=== PATIENT | female | born 1965 | race American Indian/Alaskan Native ===

== ENCOUNTER 2017-10-14 01:54 | Emergency (ER) | payer BC, OTHER ==
--- NOTE | 2017-10-14 05:54 | XRay Report ---
FINAL REPORT PROCEDURE: XR CHEST ROUTINE 2V TECHNIQUE: PA and lateral chest radiographs were obtained. CPT 60375 HISTORY: SOB COMPARISON: No prior studies are available for comparison. FINDINGS: Heart: Normal. Mediastinum/Vessels: Normal. Lungs/Pleural space: Normal. Bony thorax: No acute osseous abnormality. Other: IMPRESSION: Normal examination.
[2017-10-14] MEDS ORDERED: TYLENOL/CODEINE PO ONE (06:29)
[2017-10-14] MEDS ORDERED: DUONEB *Not for PRN Use IH ONE (06:29)
[2017-10-14] MEDS ORDERED: TORADOL IM ONE (06:30)
--- NOTE | 2017-10-14 07:04 | Emergency Department Report ---
Chief Complaint: Upper Respiratory Infection Stated Complaint: SORE THROAT - HPI History of Present Illness: throat pain and cough x1 day - ROS Review of Systems: ENT: throat pain Resp: cough, wheezing - Exam Vital Signs: Vital Signs 10/14/17 01:59 Temperature 98 F Pulse Rate 104 H Respiratory 18 Rate Blood Pressure 144/91 O2 Sat by Pulse 100 Oximetry Physical Exam: General: afebrile, no acute distress Lungs: wheezing left lower lung MSE screening note: Focused history and physical exam performed. Due to findings the following was ordered: CXR Flu Strep ED Medical Decision Making - Radiology Data Radiology results: pending ED Disposition for MSE Condition: Stable Referrals: PRIMARY CARE, [Primary Care Provider] - 3-5 Days
--- NOTE | 2017-10-14 07:52 | Emergency Department Report ---
HPI - General Chief Complaint: Upper Respiratory Infection Time Seen by Provider: 10/14/17 07:23 - HPI HPI: This is a 52-year-old female who presents to ED complaining of throat pain 2 days. Patient states symptoms started with a sore throat yesterday and she gargled with salt warm water before going to bed. Patient states during the night she had some ticks shortness of breath with some dry coughing. Patient states coughing started last night, patient admits cough is dry and nonproductive. She denies any fevers, runny nose, abdominal pain, chest pain, dizziness, headaches or any problems ED Past Medical Hx - Past Medical History Hx Diabetes: Yes Additional medical history: hyperlipidemia - Social History Smoking Status: Never Smoker Substance Use Type: None - Medications Home Medications: Home Medications Medication Instructions Recorded Confirmed Last Taken Type ALBUTEROL Inhaler [ProAir HFA 2 puff IH QID PRN #1 pump 10/14/17 Unknown Rx Inhaler] guaiFENesin [Robitussin] 200 mg PO Q6HR #30 tablet 10/14/17 Unknown Rx ED Review of Systems ROS: Stated complaint: SORE THROAT Other details as noted in HPI Constitutional: denies: chills, fever Eyes: denies: eye pain, eye discharge, vision change ENT: throat pain. denies: ear pain Respiratory: cough, shortness of breath. denies: wheezing Cardiovascular: denies: chest pain, palpitations Endocrine: no symptoms reported Gastrointestinal: denies: abdominal pain, nausea, diarrhea Genitourinary: denies: urgency, dysuria, frequency, hematuria, discharge Musculoskeletal: denies: back pain, joint swelling, arthralgia Skin: denies: rash, lesions Neurological: denies: headache, weakness, paresthesias Psychiatric: denies: anxiety, depression Hematological/Lymphatic: denies: easy bleeding, easy bruising Physical Exam - Physical Exam Vital Signs: Vital Signs 10/14/17 01:59 Temperature 98 F Pulse Rate 104 H Respiratory 18 Rate Blood Pressure 144/91 O2 Sat by Pulse 100 Oximetry Physical Exam: GENERAL: Alert and oriented x3, no apparent distress, Normal Gait, atraumatic. HEAD: Head is normocephalic and a-traumatic. EYES: Extra ocular muscles are intact. Pupils are equal, round, and reactive to light and accommodation. EARS: symetrical, atraumatic, non tender, ear canal clear and moderate cerumen, tympanic membrance non inflamed. gross auditory nml bilaterally. NOSE: Nose symetrical, Nontender,Nares appeared normal. MOUTH:Mouth is well hydrated and without lesions. Tonsils nonerythematous or swollen, Uvula midline, Tongue not elevated. Mucous membranes are moist. Posterior pharynx clear, no exudate or lesions. Patent airways. NECK: Supple. Non edematous, No lymphadenopathy or thyromegaly. LUNGS: Symetrical with respiration, No wheezing, no rales or crackles, CTAB. HEART: S1, S2 present, regular rate and rhythm without murmur, no rubs, no gallops. Non tender to palpation BACK: Full range of motion, no spinal tenderness, nontender to palpation. SKIN: Warm and dry, No lesions, No ulceration or induration present. ED Course Vital Signs 10/14/17 01:59 Temperature 98 F Pulse Rate 104 H Respiratory 18 Rate Blood Pressure 144/91 O2 Sat by Pulse 100 Oximetry ED Medical Decision Making - Radiology Data Radiology results: report reviewed, image reviewed FINAL REPORT PROCEDURE: XR CHEST ROUTINE 2V TECHNIQUE: PA and lateral chest radiographs were obtained. CPT 91374 HISTORY: SOB COMPARISON: No prior studies are available for comparison. FINDINGS: Heart: Normal. Mediastinum/Vessels: Normal. Lungs/Pleural space: Normal. Bony thorax: No acute osseous abnormality. Other: IMPRESSION: Normal examination. Transcribed By: CO Dictated By: NATHANIEL MENDENHALL MD Electronically Authenticated By: NATHANIEL MENDENHALL MD Signed Date/Time: 10/14/17 0151 - Medical Decision Making 52 yo female presents with pharyngitis/bronchitis ED course: Patient received an albuterol respiratory treatment, cough suppressant, rapid strep test, Rapid strep test negative, discussed this with the patient. Patient reports feeling better after breathing treatment. Patient is satting at 100% room air Vital signs are normal patient is in no acute or respiratory distress. Discussed the patient will go home on cough suppressant and albuterol inhaler to use as needed for cough/sob. Discussed the patient to follow up with actuarial director in 3-5 days. Discussed the patient if symptoms worsen or new symptoms arise to return to ED immediately Critical care attestation.: If time is entered above; I have spent that time in minutes in the direct care of this critically ill patient, excluding procedure time. ED Disposition Clinical Impression: Bronchitis Pharyngitis Qualifiers: Pharyngitis/tonsillitis etiology: unspecified etiology Qualified Code(s): J02.9 - Acute pharyngitis, unspecified Disposition: - TO HOME OR SELFCARE Is pt being admited?: No Does the pt Need Aspirin: No Condition: Stable Instructions: Pharyngitis (ED), Chronic Bronchitis (ED) Additional Instructions: Follow-up with primary care as soon as possible A few her symptoms worsen or new symptoms arise is transferred to the ED immediately. Prescriptions: ALBUTEROL Inhaler [ProAir HFA Inhaler] 2 puff IH QID PRN #1 pump PRN Reason: Shortness Of Breath guaiFENesin [Robitussin] 200 mg PO Q6HR #30 tablet Referrals: PRIMARY CARE, [Primary Care Provider] - 3-5 Days [facility] [Outside] - 3-5 Days [facility] [Outside] - 3-5 Days [facility] [Outside] - 3-5 Days [facility] [Outside] - 3-5 Days Forms: Work/School Release Form(ED) Time of Disposition: 07:58
[2017-10-14 08:52] VITALS: BP 140/92
== END 2017-10-14 08:51 | disposition home or self-care (01) ==
LOC: ED 01:54
DX: J02.9 Acute pharyngitis, unspecified (principal); J40 Bronchitis, not specified as acute or chronic; E11.9 Type 2 diabetes mellitus without complications; E78.5 Hyperlipidemia, unspecified
CPT/HCPCS: 71020; 87116; 87430; 94640; 96372; 99283; J1885

== ENCOUNTER 2019-09-10 07:01 | Emergency (ER) | payer OTHER ==
[2019-09-10 07:14] VITALS: BP 158/120
[2019-09-10] MEDS ORDERED: NACL 0.9% 1000 ML 1,000 ML IV ONE (07:46)
--- NOTE | 2019-09-10 07:52 | Emergency Department Report ---
History of Present Illness - General Chief Complaint: Overdose Stated Complaint: MEDICATION OD Time Seen by Provider: 09/10/19 07:24 Source: patient Mode of arrival: Ambulatory Limitations: No Limitations - History of Present Illness Initial Comments: This is a 54-year-old -[place] female who presents to the emergency room after accidentally taking full dose of glipizide and metformin. Patient states she was distracted this morning while getting ready for work and accidentally to metformin 2000 mg and glipizide 15 mg. Patient states she checked her glucose at home which was 109. She called the nurse hotline for [facility] forwarded her call to poison control. Patient states was uncontrolled instructed her to follow up in the emergency room. Patient denies trauma, tachycardia, diaphoresis, anxious, dizziness, visual changes, and confusion. MD Complaint: accidental overdose Intent: other (accidental) How Overdose Was Discovered: other (called the nurse hotline) Context: Accidental Overdose: medication error Treatments Prior to Arrival: none - Related Data Previous Rx's Medication Instructions Recorded Last Taken Type RX: ALBUTEROL Inhaler (OR & NICU) 2 puff IH QID PRN #1 pump 10/14/17 Unknown Rx [ProAir HFA Inhaler] guaiFENesin [Robitussin] 200 mg PO Q6HR #30 tablet 10/14/17 Unknown Rx Allergies Allergy/AdvReac Type Severity Reaction Status Date / Time No Known Allergies Allergy Unverified 10/14/17 02:02 ED Review of Systems ROS: Stated complaint: MEDICATION OD Other details as noted in HPI Constitutional: denies: chills, fever Respiratory: denies: cough, shortness of breath, wheezing Cardiovascular: denies: chest pain, palpitations Endocrine: no symptoms reported Gastrointestinal: denies: abdominal pain, nausea, diarrhea Skin: denies: rash, lesions Neurological: denies: headache, weakness, paresthesias ED Past Medical Hx - Past Medical History Previous Medical History?: Yes Hx Diabetes: Yes Additional medical history: hyperlipidemia - Social History Smoking Status: Never Smoker Substance Use Type: None - Medications Home Medications: Home Medications Medication Instructions Recorded Confirmed Last Taken Type RX: ALBUTEROL Inhaler (OR & NICU) 2 puff IH QID PRN #1 pump 10/14/17 Unknown Rx [ProAir HFA Inhaler] guaiFENesin [Robitussin] 200 mg PO Q6HR #30 tablet 10/14/17 Unknown Rx ED Physical Exam - General Limitations: No Limitations General appearance: alert, in no apparent distress - Respiratory Respiratory exam: Present: normal lung sounds bilaterally. Absent: respiratory distress - Cardiovascular Cardiovascular Exam: Present: regular rate, normal rhythm. Absent: systolic murmur, diastolic murmur, rubs, gallop - GI/Abdominal GI/Abdominal exam: Present: soft, normal bowel sounds. Absent: tenderness, guarding, rebound, rigid - Neurological Exam Neurological exam: Present: alert, oriented X3, normal gait - Psychiatric Psychiatric exam: Present: normal affect, normal mood - Skin Skin exam: Present: warm, dry, intact, normal color. Absent: rash ED Course Vital Signs 09/10/19 09/10/19 07:10 09:01 Temperature 98.6 F Pulse Rate 86 Respiratory 16 12 Rate Blood Pressure 158/120 [Left] O2 Sat by Pulse 99 100 Oximetry ED Medical Decision Making - Lab Data Result diagrams: 09/10/19 07:49 09/10/19 07:49 Lab Results 09/10/19 09/10/19 09/10/19 Range/Units 07:17 07:49 07:49 WBC 5.4 (4.5-11.0) K/mm3 RBC 3.86 (3.65-5.03) M/mm3 Hgb 10.8 (10.1-14.3) gm/dl Hct 32.9 (30.3-42.9) % MCV 85 (79-97) fl MCH 28 (28-32) pg MCHC 33 (30-34) % RDW 16.3 H (13.2-15.2) % Plt Count 290 (140-440) K/mm3 Lymph % (Auto) 25.0 (13.4-35.0) % Cotton % (Auto) 8.5 H (0.0-7.3) % Eos % (Auto) 4.4 H (0.0-4.3) % Baso % (Auto) 1.2 (0.0-1.8) % Lymph # 1.3 (1.2-5.4) K/mm3 Cotton # 0.5 (0.0-0.8) K/mm3 Eos # 0.2 (0.0-0.4) K/mm3 Baso # 0.1 (0.0-0.1) K/mm3 Seg Neutrophils % 60.9 (40.0-70.0) % Seg Neutrophils # 3.3 (1.8-7.7) K/mm3 Sodium 140 (137-145) mmol/L Potassium 4.3 (3.6-5.0) mmol/L Chloride 100.4 (98-107) mmol/L Carbon Dioxide 23 (22-30) mmol/L Anion Gap 21 mmol/L BUN 8 (7-17) mg/dL Creatinine 0.7 (0.7-1.2) mg/dL Estimated GFR > 60 ml/min BUN/Creatinine Ratio 11 % Glucose 145 H (65-100) mg/dL POC Glucose 115 H (70-105) Calcium 9.0 (8.4-10.2) mg/dL 09/10/19 Range/Units 08:47 WBC (4.5-11.0) K/mm3 RBC (3.65-5.03) M/mm3 Hgb (10.1-14.3) gm/dl Hct (30.3-42.9) % MCV (79-97) fl MCH (28-32) pg MCHC (30-34) % RDW (13.2-15.2) % Plt Count (140-440) K/mm3 Lymph % (Auto) (13.4-35.0) % Cotton % (Auto) (0.0-7.3) % Eos % (Auto) (0.0-4.3) % Baso % (Auto) (0.0-1.8) % Lymph # (1.2-5.4) K/mm3 Cotton # (0.0-0.8) K/mm3 Eos # (0.0-0.4) K/mm3 Baso # (0.0-0.1) K/mm3 Seg Neutrophils % (40.0-70.0) % Seg Neutrophils # (1.8-7.7) K/mm3 Sodium (137-145) mmol/L Potassium (3.6-5.0) mmol/L Chloride (98-107) mmol/L Carbon Dioxide (22-30) mmol/L Anion Gap mmol/L BUN (7-17) mg/dL Creatinine (0.7-1.2) mg/dL Estimated GFR ml/min BUN/Creatinine Ratio % Glucose (65-100) mg/dL POC Glucose 114 H (70-105) Calcium (8.4-10.2) mg/dL - Medical Decision Making Patient was examined by me. Patient is nontoxic appearing and stable. Vitals are normal. Obtained labs. Consulted with attending Dr. Mitchell regarding possible administration of activated charcoal per poison control. Patient moved to the main emergency room pending labs and 24-hour observation. Critical care attestation.: If time is entered above; I have spent that time in minutes in the direct care of this critically ill patient, excluding procedure time. ED Disposition Disposition: DC/TX-70 ANOTHER TYPE [facility] Condition: Stable Referrals: [facility]RIS [facility]ANN [Other] - 3-5 Days
[2019-09-10 08:03] LABS: Basophils # (Auto) 0.1 K/mm3 (0.0-0.1); Basophils % (Auto) 1.2 % (0.0-1.8); Eosinophils # (Auto) 0.2 K/mm3 (0.0-0.4); Eosinophils % (Auto) 4.4 % (0.0-4.3); Hematocrit 32.9 % (30.3-42.9); Hemoglobin 10.8 gm/dl (10.1-14.3); Lymphocytes # (Auto) 1.3 K/mm3 (1.2-5.4); Mean Corpuscular HGB Conc 33 % (30-34); Mean Corpuscular Volume 85 fl (79-97); Monocytes # (Auto) 0.5 K/mm3 (0.0-0.8); Monocytes % (Auto) 8.5 % (0.0-7.3); Platelet Count 290 K/mm3 (140-440); Red Blood Count 3.86 M/mm3 (3.65-5.03); Red Cell Distribution Width 16.3 % (13.2-15.2)
[2019-09-10] MEDS ORDERED: ACTIDOSE-AQUA PO ONE (08:23)
[2019-09-10 08:31] LABS: BUN/Creatinine Ratio 11; Blood Urea Nitrogen 8 mg/dL (7-17); Hemolysis Index 2
--- NOTE | 2019-09-10 08:35 | Emergency Department Report ---
Neisha Doc - Documentation Documentation: The patient is a 54-year-old female visiting with a chief complaint of acciden aamir overdose of metformin and glyburide. The patient states she normally takes metformin 1000 mg twice a day and glipizide 5 mg every morning and 10 mg every afternoon. The patient states she forgot to separate her medication and took a total of metformin 2000 mg and glipizide 15 mg today at 06:40. Patient complains of feeling slightly sleepy Case discussed with [facility] physician Dr. Quinteros- bethany arrange transfer to [facility] for observation
== END 2019-09-10 09:52 | disposition other institution (70) ==
LOC: ED 07:01
DX: T38.3X1A Poisoning by insulin and oral hypoglycemic [antidiabetic] drugs, accidental (unintentional), initial encounter (principal); E11.9 Type 2 diabetes mellitus without complications; E78.5 Hyperlipidemia, unspecified; Z79.899 Other long term (current) drug therapy; Y92.89 Other specified places as the place of occurrence of the external cause
CPT/HCPCS: 36415; 80048; 82962; 85025; 99285; J7030